=== PATIENT | male | born 1980 | race Caucasian/White ===

== ENCOUNTER 2017-11-22 15:07 | Emergency (ER) | payer SELFPAY ==
[~2017-11-22] VITALS: Ht 160 cm; Wt 73.0 kg
[2017-11-22 15:11] VITALS: BP 108/52
== END 2017-11-22 20:45 | disposition left against medical advice (07) ==
LOC: ER 15:20
DX: F10.129 Alcohol abuse with intoxication, unspecified (principal); Z53.21 Procedure and treatment not carried out due to patient leaving prior to being seen by health care provider